=== PATIENT | male | born 2000 | race Caucasian/White ===

== ENCOUNTER 2021-06-25 11:32 | Emergency (ER) | payer OTHER ==
[2021-06-25 12:02] VITALS: BP 127/81; PULSE 70; TEMP 98.2; BMI 21.9
[2021-06-25] MEDS ORDERED: IBUPROFEN 600 MG TABLET (FP) PO ONE ×2 (12:54→13:38)
[2021-06-25] MEDS ORDERED: DEXAMETHASONE LIQUID 0.5 MG/5 ML PO ONE (12:54)
[2021-06-25] MEDS ORDERED: DEXAMETHASONE SOD PHOSPHATE 10 MG/1 ML VIAL ONE (13:38)
== END 2021-06-25 13:43 | disposition home or self-care (01) ==
LOC: JERFT 11:32
DX: J02.9 Acute pharyngitis, unspecified (principal)
CPT/HCPCS: 87651; 99283-25